=== PATIENT | female | born 1970 | race Caucasian/White ===

== ENCOUNTER → 2020-05-21 | Outpatient (CLI) | payer BC ==
[~2020-05-21] MED LIST: CATHETER FLUSH 10 ML SYR IV PRN; HOLD METFORMIN - RECEIVED CONTRAST 20 ML VIAL IV SCH; IOHEXOL 350 MG/ML 150 ML (OMNIPAQUE 350) VIAL IV ONE; NS 100 ML (IVPB) BAG IV ONE
--- NOTE | 2020-05-21 13:57 | Diagnostic Imaging Report ---
PROCEDURE: CT angiography of the chest with contrast. TECHNIQUE: Multiple contiguous axial images were obtained through the chest after uneventful bolus administration of intravenous contrast. 3D reconstructed CTA MIP acquisitions were also performed. Auto Exposure Controls were utilized during the CT exam to meet ALARA standards for radiation dose reduction. INDICATION: Cough and wheezing with elevated d-dimer. COMPARISON: No prior studies are available for comparison. FINDINGS: Evaluation of pulmonary arterial system is without evidence of thromboembolism. No filling defects are seen within central, lobar or segmental branches. Thoracic aorta is normal caliber. There is no dissection. No pericardial or pleural fluid is identified. No pulmonary infiltrates or nodules are seen. The upper abdomen is unremarkable. IMPRESSION: 1. No evidence of pulmonary embolism or thoracic aortic dissection. 2. No acute features detected. Dictated by: Dictated on workstation # [id number]
== END ==
LOC: RAD FS 12:30
PROVIDERS: ATTEND Nurse Practitioner Family
DX: R05 Cough (principal); R79.1 Abnormal coagulation profile; R06.2 Wheezing; Z86.16 Personal history of COVID-19
CPT/HCPCS: 71275

== ENCOUNTER → 2020-09-22 | Outpatient (CLI) | payer BC ==
[2020-09-22 14:42] LABS: CREATININE SERUM 1.05 MG/DL (0.60-1.30); POTASSIUM 3.1 MMOL/L (3.6-5.0)
[2020-09-22 14:44] LABS: ALBUMIN 3.2 GM/DL (3.2-4.5); BILIRUBIN,TOTAL 0.3 MG/DL (0.1-1.0); CALCIUM 9.5 MG/DL (8.5-10.1)
--- NOTE | 2020-09-22 16:48 | Diagnostic Imaging Report ---
INDICATION: Shortness of breath and abdominal pain CTA chest, abdomen and pelvis Thin axial sections through the chest, abdomen and pelvis are obtained following intravenous contrast bolus. Multiplanar MIP images were reconstructed and reviewed. All CT scans use one or more of the following dose optimizing techniques: automated exposure control, MA and/or KvP adjustment based on patient size and exam type or iterative reconstruction. CTA chest is compared to previous study 05/21/2020. There is no prior CT abdomen and pelvis for comparison CTA chest findings: The pulmonary parenchymal vessels are well-opacified with no CT evidence of pulmonary emboli. There is no evidence of aortic dissection or aneurysm. Great vessel origins appear unremarkable. There is no pleural or pericardial fluid. There are postoperative changes of the GE junction. There are no enlarged axillary nodes or chest wall lesions. Lung parenchymal windows demonstrate no pulmonary parenchymal infiltrates or nodules. CT abdomen and pelvis findings: The liver shows no focal lesion. Gallbladder is distended. Spleen, adrenals, and pancreas are normal. The left kidney appears normal. The right kidney shows some perinephric edema with patchy hypodense areas in the nephrographic phase, suspicious for pyelonephritis. There is some stranding of perinephric fat on the right side. There is no definite hydronephrosis or ureteral stone. IMPRESSION: CTA chest demonstrates no evidence of pulmonary emboli or aortic dissection or aneurysm. There is no acute process in the chest. CT of the abdomen and pelvis demonstrates abnormal appearance of the right kidney with some perinephric fat stranding and patchy hypodensities throughout the right kidney, suspicious for pyelonephritis. There is no evidence of stone or hydronephrosis. Gallbladder is somewhat distended. There are postoperative changes of the GE junction. Dictated by: Dictated on workstation # [id number]
== END ==
LOC: RAD FS 13:50
PROVIDERS: ATTEND Nurse Practitioner Family
DX: R10.11 Right upper quadrant pain (principal); R06.02 Shortness of breath; D72.829 Elevated white blood cell count, unspecified; R79.1 Abnormal coagulation profile; R74.8 Abnormal levels of other serum enzymes
CPT/HCPCS: 36415; 71275; 74177; 80053